=== PATIENT | male | born 1940 | race Caucasian/White ===

== ENCOUNTER → 2019-01-29 | Outpatient (CLI) | payer MEDICARE, BC ==
[~2019-01-29] MED LIST: OMNIPAQUE 350 MG/ML, 100ML BOTTLE ONE
== END | disposition home or self-care (01) ==
LOC: CFH 07:50
PROVIDERS: ATTEND Family Medicine
DX: K57.32 Diverticulitis of large intestine without perforation or abscess without bleeding (principal); N40.0 Benign prostatic hyperplasia without lower urinary tract symptoms; K76.0 Fatty (change of) liver, not elsewhere classified; K40.20 Bilateral inguinal hernia, without obstruction or gangrene, not specified as recurrent; J98.11 Atelectasis; I51.7 Cardiomegaly; I70.0 Atherosclerosis of aorta; M47.819 Spondylosis without myelopathy or radiculopathy, site unspecified; M16.0 Bilateral primary osteoarthritis of hip
CPT/HCPCS: 74177; Q9967

== ENCOUNTER 2019-06-14 06:35 | Outpatient (CLI) | payer MEDICARE, BC | END 2019-06-14 23:59 | disposition home or self-care (01) | LOC: CFH 06:35 | PROVIDERS: ATTEND Internal Medicine Cardiovascular Disease | DX: I08.9 Rheumatic multiple valve disease, unspecified (principal) | CPT/HCPCS: 78452; 93017; 93306; A9502 ==